=== PATIENT | male | born 1980 | race Caucasian/White ===

== ENCOUNTER 2019-05-15 13:07 | Inpatient (IN) | payer OTHER ==
[2019-05-15 15:20] VITALS: BMI 27.7
--- NOTE | 2019-05-15 15:38 | HP ---
CIWA Score Nausea/Vomitin-Int. Nausea w/Dry Heave Muscle Tremors: 2 Anxiety: 1-Mildly Anxious Agitation: 3 Paroxysmal Sweats: 4-Forehead w/Sweat Beads Orientation: 1-Uncertain about Date Tacttile Disturbances: 1-Very Mild Itch/Numbness Auditory Disturbances: 0-None Visual Disturbances: 2-Mild Sensitivity Headache: 1-Very Mild CIWA-Ar Total Score: 19 - Admission Criteria OASAS Guidelines: Admission for Medically Managed Detox: Requires at least one of the followin. CIWA greater than 12 2. Seizures within the past 24 hours 3. Delirium tremens within the past 24 hours 4. Hallucinations within the past 24 hours 5. Acute intervention needed for co occurring medical disorder 6. Acute intervention needed for co occurring psychiatric disorder 7. Severe withdrawal that cannot be handled at a lower level of care (continued vomiting, continued diarrhea, abnormal vital signs) requiring intravenous medication and/or fluids 8. Admitting History and Physical - Admission History of Present Illness: 39 year old male with alcohol dependence with mild withdrawals, cocaine use disorder and cannabis use disorder. 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 He drinks 30 beers of coors light every day, has to take a sports physiologist eye communications maintainer, has withdrawals if he stops drinking. He has a blackouts in the past and most recent one was 10 weeks ago. He did have an coronary spasm from cocaine overdose in [place]. He had an coronary arterial spasm with catherization intervention. He was intoxicated to the point of delirium tremens. He smokes 1 ppd for many since age 11 years old. He also smokes marijuana about $10 per week. He uses cocaine 2-3 grams per day, last used yesterday. PMH: GERD, Asthma as a child Psurg: Catherization 2012 He is homeless and not in senior living system. He has no support system and no family that supports him or cares about him. History Source: Patient Limitations to Obtaining History: No Limitations - Past Medical History Cardiovascular: Yes: Other (coronary spasm secondary to cocaine use) Pulmonary: Yes: Asthma (history as a child) - Past Surgical History Additional Past Surgical History: catherization for coronary spasm. 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 History of Recent Travel: No Admission ROS [facility] - [facility] Allergies/Adverse Reactions: Allergies Allergy/AdvReac Type Severity Reaction Status Date / Time No Known Allergies Allergy Verified 05/15/19 15:12 Exam Limitations: No Limitations - Ebola screening Have you traveled outside of the country in the last 21 days: No Have you had contact with anyone from an Ebola affected area: No Have you been sick,other than usual withdrawal symptoms: No Do you have a fever: No - Review of Systems Constitutional: Chills, Diaphoresis, Weight Stable EENT: reports: No Symptoms Reported Respiratory: reports: No Symptoms reported Cardiac: reports: No Symptoms Reported GI: reports: No Symptoms Reported : reports: No Symptoms Reported Musculoskeletal: reports: Joint Pain, Muscle Pain Integumentary: reports: No Symptoms Reported Neuro: reports: No Symptoms reported Endocrine: reports: No Symptoms Reported Hematology: reports: No Symptoms Reported Psychiatric: reports: Judgement Intact, Mood/Affect Appropiate, Orientated x3 Other Systems: Reviewed and Negative Patient History - Patient Medical History Hx Anemia: No Hx Asthma: Yes (as achild) Hx Chronic Obstructive Pulmonary Disease (COPD): No Hx Cancer: No Hx Cardiac Disorders: No Hx Congestive Heart Failure: No Hx Hypertension: No Hx Hypercholesterolemia: No Hx Pacemaker: No HX Cerebrovascular Accident: No Hx Seizures: No Hx Dementia: No Hx Diabetes: No Hx Gastrointestinal Disorders: Yes (GERD) Hx Liver Disease: No Hx Genitourinary Disorders: No Hx Sexually Transmitted Disorders: No Hx Renal Disease (ESRD): No Hx Thyroid Disease: No Hx Human Immunodeficiency Virus (HIV): No Hx Hepatitis C: No Hx Depression: No Hx Suicide Attempt: No Hx Bipolar Disorder: No Hx Schizophrenia: No Other Medical History: anxiety disorder - Patient Surgical History Past Surgical History: Yes Other Surgical History: cardiac catherization - PPD History Previous Implant?: Yes Documented Results: Negative w/proof Implanted On Prior [facility] Admission?: No Date: 04/09/19 Results: negative PPD to be Administered?: Yes - Smoking Cessation Smoking history: Current every day smoker Have you smoked in the past 12 months: Yes Aproximately how many cigarettes per day: 10 Hx Chewing Tobacco Use: No Initiated information on smoking cessation: Yes 'Breaking Loose' booklet given: 05/15/19 - Substance & Tx. History Hx Alcohol Use: Yes (30 beers) Hx Substance Use: No Substance Use Type: Alcohol, Cocaine, Heroin Hx Substance Use Treatment: Yes (detoxes in other places) - Substances abused Alcohol Substance route: Oral Frequency: Daily Amount used: 30 CANS OF BEER Age of first use: 16 Date of last use: 05/15/19 Cocaine Substance route: Inhalation Frequency: Daily Amount used: $80 Age of first use: 16 Date of last use: 05/15/19 Marijuana/Hashish Substance route: Smoking Frequency: 1-2 times per week Amount used: $10 Age of first use: 11 Date of last use: 05/08/19 Admission Physical Exam S - Vital Signs Vital Signs: Vital Signs - 24 hr 05/15/19 15:10 Temperature 98.6 F Pulse Rate 88 Respiratory 18 Rate Blood Pressure 153/90 - Physical General Appearance: Yes: No Apparent Distress, Nourished, Appropriately Dressed , Irritable, Sweating, Anxious HEENTM: Yes: Hearing grossly Normal, Normal ENT Inspection, Normocephalic, Normal Voice, JULIANNA, Pharynx Normal, Tm's normal Respiratory: Yes: Chest Non-Tender, Lungs Clear, Normal Breath Sounds, No Respiratory Distress, No Accessory Muscle Use Neck: Yes: No masses,lesions,Nodules, Supple, Trachea in good position Breast: Yes: Within Normal Limits Cardiology: Yes: Regular Rhythm, Regular Rate, S1, S2 Abdominal: Yes: Normal Bowel Sounds, Non Tender, Soft, Protuberent Genitourinary: Yes: Within Normal Limits Back: Yes: Normal Inspection Musculoskeletal: Yes: full range of Motion, Gait Steady, Pelvis Stable Extremities: Yes: Normal Capillary Refill, Normal Inspection, Normal Range of Motion, Non-Tender Neurological: Yes: command and control systems integrator II-XII NML intact, Fully Oriented, Alert, Motor Strength 5/5, Normal Mood/Affect, Normal Response Integumentary: Yes: Normal Color, Warm Lymphatic: Yes: Within Normal Limits - Diagnostic (1) Alcohol dependence with withdrawal, uncomplicated Current Visit: Yes Status: Acute (2) Cocaine use disorder Current Visit: Yes Status: Acute (3) GERD (gastroesophageal reflux disease) Current Visit: Yes Status: Acute (4) Cannabis use disorder, mild, abuse Current Visit: Yes Status: Acute Cleared for Admission S - Detox or Rehab [facility] Level of Care: Medically Managed Detox Regimen/Protocol: Librium Claeared for Rehab Admission: No Screened but not Admitted - Documentation of Visit Screened but not Admitted: No Breathalyzer - Breathalyzer Breathalyzer: 0 (beer yesterday) Inpatient Rehab Admission - Rehab Decision to Admit Inpatient rehab admission?: No
[2019-05-15] MEDS ORDERED: MAGNESIUM HYDROX 2400MG/30ML ORAL SUSPENSION 30 ML CUP PO PRN (15:49)
[2019-05-15] MEDS ORDERED: MENTHOL/PHENOL 1 EACH UD MM PRN (15:49)
[2019-05-15] MEDS ORDERED: MAG HYDROX/AL HYDROX/SIMETH 30 ML UNIT-DOSE CUP PO PRN (15:49)
[2019-05-15] MEDS ORDERED: MAGNESIUM CITRATE 300 ML BOTTLE PO PRN (15:49)
[2019-05-15] MEDS ORDERED: IBUPROFEN 400 MG TABLET (FP) PO PRN (15:49)
[2019-05-15] MEDS ORDERED: ACETAMINOPHEN 325 MG TABLET (FP) PO PRN ×2 (15:49)
[2019-05-15] MEDS ORDERED: chlordiazePOXIDE HCL 25 MG CAPSULE PO PRN (15:49)
[2019-05-15] MEDS ORDERED: BISMUTH SUBSALICYLATE 524 MG/30 ML UD PO PRN (15:49)
[2019-05-15] MEDS: chlordiazePOXIDE HCL 25 MG CAPSULE PO SCH ×2 (18:11→22:23)
[2019-05-15] MEDS: NICOTINE 14 MG/24 HOURS TOPICAL PATCH TD SCH (19:02)
[2019-05-15] MEDS: MELATONIN 5 MG TABLETS PO PRN (22:23)
[2019-05-15] MEDS: THIAMINE HCL 100 MG TABLET (FP) PO SCH (22:23)
[2019-05-15] MEDS: METHOCARBAMOL 500 MG TABLET PO PRN (22:23)
[2019-05-16] MEDS: chlordiazePOXIDE HCL 25 MG CAPSULE PO SCH ×4 (05:35→22:11)
[2019-05-16] MEDS: METHOCARBAMOL 500 MG TABLET PO PRN ×2 (05:36→22:11)
--- NOTE | 2019-05-16 09:14 | PN ---
S CIWA - CIWA Score Nausea/Vomitin-Mild Nausea/No Vomiting Muscle Tremors: 4-Moderate,w/Arms Extend Anxiety: 3 Agitation: 2 Paroxysmal Sweats: 2 Orientation: 2-Disoriented Date<2 days Tacttile Disturbances: 1-Very Mild Itch/Numbness Auditory Disturbances: 0-None Visual Disturbances: 0-None Headache: 2-Mild CIWA-Ar Total Score: 17 [facility] Progress Note (SOAP) Subjective: 39 years old male admitted on 05/15/19 for alcohol withdrawal sx management treating with librium detox regimen ate breakfast feeling tired sweating hot and cold encourage to attend groups and meetings Objective: 05/16/19 09:14 Vital Signs Temperature 97.9 F 05/16/19 09:06 Pulse Rate 69 05/16/19 09:06 Respiratory Rate 18 05/16/19 09:06 Blood Pressure 108/72 05/16/19 09:06 O2 Sat by Pulse Oximetry (%) 05/16/19 09:14 lab pending Assessment: 05/16/19 09:15 alcohol withdrawal Plan: librium regimen
[2019-05-16 09:54] LABS: HEMATOCRIT 42.1 % (35.4-49); HEMOGLOBIN 14.3 GM/dL (11.7-16.9); MCH 32.1 pg (25.7-33.7); MEAN CELL VOLUME 94.3 fl (80-96); MEAN PLT VOLUME 7.4 fl (7.5-11.1); PLATELET COUNT 363 K/MM3 (134-434); RBC 4.46 M/mm3 (4.00-5.60); RDW 12.7 % (11.9-15.9); WHITE BLOOD COUNT 7.1 K/mm3 (4.0-10.0)
[2019-05-16 10:03] LABS: ALBUMIN 3.1 g/dl (3.4-5.0); BILIRUBIN,TOTAL 0.3 mg/dL (0.2-1); BLOOD UREA NITROGEN 11.2 mg/dL (7-18); CALCIUM 8.9 mg/dL (8.5-10.1); CREATININE 0.9 mg/dL (0.55-1.3); POTASSIUM 4.4 mmol/L (3.5-5.1); TOT PROT 6.3 g/dl (6.4-8.2)
[2019-05-16] MEDS: NICOTINE 14 MG/24 HOURS TOPICAL PATCH TD SCH (10:21)
[2019-05-16] MEDS: PRENATAL VITAMINS W/ FOLIC ACID TABLET (FP) PO SCH (10:21)
--- NOTE | 2019-05-16 12:00 | EKG ---
Test Reason : Blood Pressure : / mmHG Vent. Rate : 078 BPM Atrial Rate : 078 BPM P-R Int : 164 ms QRS Dur : 082 ms QT Int : 388 ms P-R-T Axes : 034 022 026 degrees QTc Int : 442 ms NORMAL SINUS RHYTHM NORMAL ECG NO PREVIOUS ECGS AVAILABLE Confirmed by SOL MADRID MD ([id number]) on 05/16/2019 11:59:48 AM Referred By: KESHIA Confirmed By:SOL MADRID MD
[2019-05-16] MEDS: NICOTINE POLACRILEX 2 MG GUM BUC PRN ×2 (18:28→20:42)
[2019-05-16] MEDS: THIAMINE HCL 100 MG TABLET (FP) PO SCH (22:11)
[2019-05-16] MEDS: MELATONIN 5 MG TABLETS PO PRN (23:48)
[2019-05-17] MEDS: chlordiazePOXIDE HCL 25 MG CAPSULE PO SCH ×4 (05:22→22:26)
[2019-05-17] MEDS: NICOTINE POLACRILEX 2 MG GUM BUC PRN ×3 (05:22→16:34)
[2019-05-17] MEDS: METHOCARBAMOL 500 MG TABLET PO PRN ×2 (05:24→22:26)
[2019-05-17] MEDS: PRENATAL VITAMINS W/ FOLIC ACID TABLET (FP) PO SCH (10:06)
[2019-05-17] MEDS: NICOTINE 14 MG/24 HOURS TOPICAL PATCH TD SCH (10:06)
--- NOTE | 2019-05-17 11:33 | PN ---
S CIWA - CIWA Score Nausea/Vomitin-No Nausea/No Vomiting Muscle Tremors: 2 Anxiety: 2 Agitation: 2 Paroxysmal Sweats: 1-Minimal Palms Moist Orientation: 0-Oriented Tacttile Disturbances: 1-Very Mild Itch/Numbness Auditory Disturbances: 0-None Visual Disturbances: 0-None Headache: 0-None Present CIWA-Ar Total Score: 8 [facility] Progress Note (SOAP) Subjective: c/o of hot and cold sweats, irritable, body aches Objective: 05/17/19 11:33 Vital Signs Temperature 98.7 F 05/17/19 09:44 Pulse Rate 72 05/17/19 09:44 Respiratory Rate 18 05/17/19 09:44 Blood Pressure 96/65 05/17/19 09:44 O2 Sat by Pulse Oximetry (%) Laboratory Last Values WBC 7.1 K/mm3 (4.0-10.0) 05/16/19 08:00 RBC 4.46 M/mm3 (4.00-5.60) 05/16/19 08:00 Hgb 14.3 GM/dL (11.7-16.9) 05/16/19 08:00 Hct 42.1 % (35.4-49) 05/16/19 08:00 MCV 94.3 fl (80-96) 05/16/19 08:00 MCH 32.1 pg (25.7-33.7) 05/16/19 08:00 MCHC 34.0 g/dl (32.0-35.9) 05/16/19 08:00 RDW 12.7 % (11.9-15.9) 05/16/19 08:00 Plt Count 363 K/MM3 (134-434) 05/16/19 08:00 MPV 7.4 fl (7.5-11.1) L 05/16/19 08:00 Sodium 142 mmol/L (136-145) 05/16/19 08:00 Potassium 4.4 mmol/L (3.5-5.1) 05/16/19 08:00 Chloride 105 mmol/L (98-107) 05/16/19 08:00 Carbon Dioxide 31 mmol/L (21-32) 05/16/19 08:00 Anion Gap 5 MMOL/L (8-16) L 05/16/19 08:00 BUN 11.2 mg/dL (7-18) 05/16/19 08:00 Creatinine 0.9 mg/dL (0.55-1.3) 05/16/19 08:00 Est GFR (CKD-EPI)AfAm 122.52 05/16/19 08:00 Est GFR (CKD-EPI)NonAf 105.71 05/16/19 08:00 Random Glucose 92 mg/dL (74-106) 05/16/19 08:00 Calcium 8.9 mg/dL (8.5-10.1) 05/16/19 08:00 Total Bilirubin 0.3 mg/dL (0.2-1) 05/16/19 08:00 AST 18 U/L (15-37) 05/16/19 08:00 ALT 34 U/L (13-61) 05/16/19 08:00 Alkaline Phosphatase 119 U/L (45-117) H 05/16/19 08:00 Total Protein 6.3 g/dl (6.4-8.2) L 05/16/19 08:00 Albumin 3.1 g/dl (3.4-5.0) L 05/16/19 08:00 RPR Titer Nonreactive (NONREACTIVE) 05/16/19 08:00 Assessment: 05/17/19 11:34 Aox3 no acute distress no adventitious breath sounds full ROM no gait disturbance withdrawal sx Plan: increase PO fluids continue detox continue to monitor
[2019-05-17] MEDS: hydrOXYzine PAMOATE 25 MG CAPSULE (FP) PO PRN (16:46)
[2019-05-17] MEDS: THIAMINE HCL 100 MG TABLET (FP) PO SCH (22:25)
[2019-05-17] MEDS: MELATONIN 5 MG TABLETS PO PRN (22:26)
[2019-05-18] MEDS ORDERED: chlordiazePOXIDE HCL 10 MG CAPSULE PO PRN
[2019-05-18] MEDS: chlordiazePOXIDE HCL 25 MG CAPSULE PO SCH (01:38)
[2019-05-18] MEDS: hydrOXYzine PAMOATE 25 MG CAPSULE (FP) PO PRN (01:38)
[2019-05-18] MEDS: NICOTINE POLACRILEX 2 MG GUM BUC PRN (01:40)
[2019-05-18] MEDS: chlordiazePOXIDE HCL 10 MG CAPSULE PO SCH ×2 (05:10→10:48)
[2019-05-18] MEDS: METHOCARBAMOL 500 MG TABLET PO PRN (05:11)
[2019-05-18 09:10] VITALS: TEMP 97.9
--- NOTE | 2019-05-18 10:10 | PN ---
S CIWA - CIWA Score Nausea/Vomitin-No Nausea/No Vomiting Muscle Tremors: 2 Anxiety: 3 Agitation: 0-Normal Activity Paroxysmal Sweats: 3 Orientation: 0-Oriented Tacttile Disturbances: 0-None Auditory Disturbances: 0-None Visual Disturbances: 0-None Headache: 0-None Present CIWA-Ar Total Score: 8 [facility] Progress Note (SOAP) Subjective: c/o shakes, sweats, and anxiety. Objective: 05/18/19 10:08 Vital Signs 05/18/19 05/18/19 05/18/19 03:30 06:06 09:08 Temperature 97.1 F L 97.9 F Pulse Rate 69 69 Respiratory 18 18 18 Rate Blood Pressure 110/69 116/81 Laboratory Last Values WBC 7.1 K/mm3 (4.0-10.0) 05/16/19 08:00 RBC 4.46 M/mm3 (4.00-5.60) 05/16/19 08:00 Hgb 14.3 GM/dL (11.7-16.9) 05/16/19 08:00 Hct 42.1 % (35.4-49) 05/16/19 08:00 MCV 94.3 fl (80-96) 05/16/19 08:00 MCH 32.1 pg (25.7-33.7) 05/16/19 08:00 MCHC 34.0 g/dl (32.0-35.9) 05/16/19 08:00 RDW 12.7 % (11.9-15.9) 05/16/19 08:00 Plt Count 363 K/MM3 (134-434) 05/16/19 08:00 MPV 7.4 fl (7.5-11.1) L 05/16/19 08:00 Sodium 142 mmol/L (136-145) 05/16/19 08:00 Potassium 4.4 mmol/L (3.5-5.1) 05/16/19 08:00 Chloride 105 mmol/L (98-107) 05/16/19 08:00 Carbon Dioxide 31 mmol/L (21-32) 05/16/19 08:00 Anion Gap 5 MMOL/L (8-16) L 05/16/19 08:00 BUN 11.2 mg/dL (7-18) 05/16/19 08:00 Creatinine 0.9 mg/dL (0.55-1.3) 05/16/19 08:00 Est GFR (CKD-EPI)AfAm 122.52 05/16/19 08:00 Est GFR (CKD-EPI)NonAf 105.71 05/16/19 08:00 Random Glucose 92 mg/dL (74-106) 05/16/19 08:00 Calcium 8.9 mg/dL (8.5-10.1) 05/16/19 08:00 Total Bilirubin 0.3 mg/dL (0.2-1) 05/16/19 08:00 AST 18 U/L (15-37) 05/16/19 08:00 ALT 34 U/L (13-61) 05/16/19 08:00 Alkaline Phosphatase 119 U/L (45-117) H 05/16/19 08:00 Total Protein 6.3 g/dl (6.4-8.2) L 05/16/19 08:00 Albumin 3.1 g/dl (3.4-5.0) L 05/16/19 08:00 RPR Titer Nonreactive (NONREACTIVE) 05/16/19 08:00 Labs noted. Assessment: 05/18/19 10:09 AOX3, in no respiratory distress. Full ROM, ambulating in the unit. Withdrawal symptoms. Plan: continue detox.
[2019-05-18] MEDS: PRENATAL VITAMINS W/ FOLIC ACID TABLET (FP) PO SCH (10:48)
[2019-05-18] MEDS: NICOTINE 14 MG/24 HOURS TOPICAL PATCH TD SCH (10:48)
[2019-05-18 13:08] VITALS: BP 108/69; PULSE 103
--- NOTE | 2019-05-18 15:49 | DS ---
[facility] Detox Discharge Summary Admission Date: 05/15/19 Discharge Date: 05/18/19 (Left AMA) - History Present History: Alcohol Dependence, Cannabis Dependence, Cocaine Dependence Additional Comments: Pt left AMA. Pt did not completed the detox protocol. Pt states "I have to leave , I'm tired of this place". An attempt to let him stay and complete the detox protocol failed. Pt is encouraged to follow-up with an outpatient CD program and also to follow-up with his pmd. Pt was adamant about the information given. Pt is alert and oriented x3 and in no acute respiratory distress. Pertinent Past History: h/o alcohol, cocaine, and cannabis use disorder. - Physical Exam Results Vital Signs: Vital Signs Temperature 97.9 F 05/18/19 13:07 Pulse Rate 103 H 05/18/19 13:07 Respiratory Rate 16 05/18/19 13:07 Blood Pressure 108/69 05/18/19 13:07 O2 Sat by Pulse Oximetry (%) Vital Signs 05/18/19 05/18/19 09:08 13:07 Temperature 97.9 F 97.9 F Pulse Rate 69 103 H Respiratory 18 16 Rate Blood Pressure 116/81 108/69 Laboratory Last Values WBC 7.1 K/mm3 (4.0-10.0) 05/16/19 08:00 RBC 4.46 M/mm3 (4.00-5.60) 05/16/19 08:00 Hgb 14.3 GM/dL (11.7-16.9) 05/16/19 08:00 Hct 42.1 % (35.4-49) 05/16/19 08:00 MCV 94.3 fl (80-96) 05/16/19 08:00 MCH 32.1 pg (25.7-33.7) 05/16/19 08:00 MCHC 34.0 g/dl (32.0-35.9) 05/16/19 08:00 RDW 12.7 % (11.9-15.9) 05/16/19 08:00 Plt Count 363 K/MM3 (134-434) 05/16/19 08:00 MPV 7.4 fl (7.5-11.1) L 05/16/19 08:00 Sodium 142 mmol/L (136-145) 05/16/19 08:00 Potassium 4.4 mmol/L (3.5-5.1) 05/16/19 08:00 Chloride 105 mmol/L (98-107) 05/16/19 08:00 Carbon Dioxide 31 mmol/L (21-32) 05/16/19 08:00 Anion Gap 5 MMOL/L (8-16) L 05/16/19 08:00 BUN 11.2 mg/dL (7-18) 05/16/19 08:00 Creatinine 0.9 mg/dL (0.55-1.3) 05/16/19 08:00 Est GFR (CKD-EPI)AfAm 122.52 05/16/19 08:00 Est GFR (CKD-EPI)NonAf 105.71 05/16/19 08:00 Random Glucose 92 mg/dL (74-106) 05/16/19 08:00 Calcium 8.9 mg/dL (8.5-10.1) 05/16/19 08:00 Total Bilirubin 0.3 mg/dL (0.2-1) 05/16/19 08:00 AST 18 U/L (15-37) 05/16/19 08:00 ALT 34 U/L (13-61) 05/16/19 08:00 Alkaline Phosphatase 119 U/L (45-117) H 05/16/19 08:00 Total Protein 6.3 g/dl (6.4-8.2) L 05/16/19 08:00 Albumin 3.1 g/dl (3.4-5.0) L 05/16/19 08:00 RPR Titer Nonreactive (NONREACTIVE) 05/16/19 08:00 Labs noted. Pertinent Admission Physical Exam Findings: withdrawal symptoms. - Treatment Hospital Course: Detox Protocol Followed - Medication Discharge Medications: Ambulatory Orders NK [No Known Home Medication] 05/15/19 - Diagnosis (1) Alcohol dependence with withdrawal, uncomplicated Current Visit: Yes Status: Acute (2) Cannabis use disorder, mild, abuse Current Visit: Yes Status: Acute (3) Cocaine use disorder Current Visit: Yes Status: Acute (4) GERD (gastroesophageal reflux disease) Current Visit: Yes Status: Acute - AMA Did Patient Leave Against Medical Advice: Yes
[2019-05-19] MEDS ORDERED: chlordiazePOXIDE HCL 10 MG CAPSULE PO SCH (05:00)
[2019-05-20] MEDS ORDERED: chlordiazePOXIDE HCL 10 MG CAPSULE PO ONE (05:00)
== END 2019-05-18 15:54 | disposition left against medical advice (07) | DRG 770 ==
LOC: YASAS 13:07 → Y3N 16:30
PROVIDERS: ADMIT Allergy & Immunology; ATTEND Allergy & Immunology
PROC: HZ2ZZZZ Detoxification Services for Substance Abuse Treatment (ICD-10-PCS; principal; 2019-05-15)
DX: F10.230 Alcohol dependence with withdrawal, uncomplicated (principal); F14.20 Cocaine dependence, uncomplicated; F12.10 Cannabis abuse, uncomplicated; F17.210 Nicotine dependence, cigarettes, uncomplicated; K21.9 Gastro-esophageal reflux disease without esophagitis; Z59.0 Homelessness
CPT/HCPCS: 36415; 80053; 85027; 86593; 93005; 93010